=== PATIENT | female | born 1975 | race Caucasian/White ===

== ENCOUNTER → 2020-12-21 | Outpatient (CLI) | payer OTHER ==
[~2020-12-21] MED LIST: ADDERALL 10 MG10 MG PO; BENTYL 10 MG CA10 M1 PO; CLARITIN-D 24 H1 TA1 PO; IMITREX4 MG/0.5 M SQ; KLONAPIN; NICOTINE LOZENGE2 MG BC; NORCO 5-325 TA1 EACH PO; PROZAC 10 MG CA10 MG PO; VICODIN 5-5001 EACH PO; VITAMIN D400 UNI1 PO; ZOFRAN4 MG PO; [UNRECOGNIZED DRUG - REMARK]
== END ==
LOC: M.RAD 12:54
PROVIDERS: ATTEND Family Medicine
DX: Z12.31 Encounter for screening mammogram for malignant neoplasm of breast (principal)